=== PATIENT | male | born 1965 | race Caucasian/White ===

== ENCOUNTER 2017-03-04 15:15 | Emergency (ER) | payer MEDICAID ==
--- NOTE | 2017-03-04 15:31 | ED Physician Chart ---
ED Chief Complaint/HPI - Patient Information Date Seen:: 03/04/17 Time Seen:: 15:15 Chief Complaint:: Right Eye FB Sensation History of Present Illness:: onset x one day of right eye FB sensation after exposure to a metallic FB to Right eye; pt denies visual changes, decreased vision, ocular pain, eye pain or discharge; pt has mild right red eye; no H/As, head/neck trauma, neck pain, C/P , SOB, Abd. Pain, A/N/V/D/C, fever, chills, orc urinary s/s; no photophobia; pt' s last tetanus shot: > 5 years Allergies:: Allergies Allergy/AdvReac Type Severity Reaction Status Date / Time MDX No Known Allergies - Nka Allergy Verified 04/16/14 07:20 [No Known Allergies - Nka] Historian:: Patient, Family Member Review:: Nurse's Note Reviewed ED Review of Systems - Review of Systems General/Constitutional: No fever, No chills, No weight loss, No weakness, No diaphoresis, No edema, No loss of appetite Skin: No skin lesions, No rash, No bruising Head: No headache, No light-headedness Eyes: No loss of vision, No pain, No diplopia, Other (Right Red Eye; FB sensation) ENT: No earache, No nasal drainage, No sore throat, No tinnitus Neck: No neck pain, No swelling, No thyromegaly, No stiffness, No mass noted Cardio Vascular: No chest pain, No palpitations, No PND, No orthopnea, No edema Pulmonary: No SOB, No cough, No sputum, No wheezing GI: No nausea, No vomiting, No diarrhea, No pain, No melena, No hematochezia, No constipation, No hematemesis G/U: No dysuria, No frequency, No hematuria Musculoskeletal: No bone or joint pain, No back pain, No muscle pain Endocrine: Polyuria, Polydipsia Psychiatric: No prior psych history, No depression, No anxiety, No suicidal ideation Hematopoietic: No bruising, No lymphadenopathy Allergic/Immuno: No urticaria, No angioedema Neurological: No syncope, No focal symptoms, No weakness, No paresthesia, No headache, No seizure, No dizziness, No confusion, No vertigo ED Past Medical History - Past Medical History Obtainable: Yes Past Medical History: DM Family History: Diabetes Melitus, HTN Social History: Smoker, No Alcohol, No Drug Use, Surgical History: None Psychiatricy History: None Medication: Reviewed Family Medical History - Family Member Father Ethnicity: Living Status: Still Living Hx Family Diabetes: Yes ED Physical Exam - Physical Examination General/Constitutional: Awake, Well-developed, well-nourished, Alert, No distress, GCS 15, Non-toxic appearing, Ambulatory Head: Atraumatic Eyes: Lids, conjuctiva normal, PERRL, EOMI Other Eyes comments:: Va: 20/20 OU; + Right Corneal Abrasion; no FBs; + right Conjunctival Injection; no FBs; PERRLA; Fundi: benign; EOMs: WNL; Left Eye: WNL Skin: Nl inspection, No rash, No skin lesions, No ecchymosis, Well hydrated, No lymphadenopathy ENMT: External ears, nose nl, Nasal exam nl, Lips, teeth, gums nl Neck: Nontender, Full ROM w/o pain, No JVD, No nuchal rigidity, No bruit, No mass, No stridor Respiratory: Nl effort/Exclusion, Clear to Auscultation, No Wheeze/Rhonchi/Rales Cardio Vascular: RRR, No murmur, gallop, rubs, NL S1 S2 GI: No tenderness/rebounding/guarding, No organomegaly, No hernia, Normal BS's, Nondistended, No mass/bruits, No McBurney tenderness : No CVA tenderness Extremities: No tenderness or effusion, Full ROM, normal strength in all extremities, No edema, Normal digits & nails Neuro/Psych: Alert/oriented, DTR's symmetric, Normal sensory exam, Normal motor strength, Judgement/insight normal, Mood normal, Normal gait, No focal deficits Misc: Normal back, No paraspinal tenderness ED Assessment - Procedures Procedures:: Irrigation of Right Eye with normal saline; Double Eye Patch applied Informed Consent: Procedure/risk/benefits explained by MD: Yes ED Septic Shock - . Is Septic Shock (SBP<90, OR Lactate>4 mmol\L) present?: No ED Reassessment (Disposition) - Reassessment Reassessment:: pt is asymptomatic upon discharge Reassessment Condition:: Improved - Diagnosis Diagnosis:: Right Red Eye; Right Corneal Abrasion; Right Conjunctivitis; Right Eye FB Exposure - Aftercare/Follow up Instructions Aftercare/Follow-Up Instructions:: Counseled pt regarding lab results/diagnosis & need follow up, Refer to Discharge Instructions, Counseled pt & family regarding lab results/diagnosis & need follow up Medication Prescribed:: Rx: Tobramycin Ophthalmic Eye Drops: one drop to Right eye qid x 7 days; wear Right eye Patch x 24 hours - Patient Disposition Discharge/Transfer:: Home Condition at Disposition:: Stable, Improved (RTER prn if existing s/s reoccur and/or get worse and/or any other new s/s occur; ACIs given for all above Dx; Refer to [employer] JIM; F/U with PMD in one day or prn; RTER prn if concerned)
== END 2017-03-04 16:30 | disposition home or self-care (01) ==
LOC: ER 15:15
DX: H10.31 Unspecified acute conjunctivitis, right eye (principal); E11.9 Type 2 diabetes mellitus without complications; T15.01XA Foreign body in cornea, right eye, initial encounter; X58.XXXA Exposure to other specified factors, initial encounter; Y93.89 Activity, other specified; Y92.89 Other specified places as the place of occurrence of the external cause; Y99.8 Other external cause status
CPT/HCPCS: 82948-90; Z7502

== ENCOUNTER 2017-07-27 21:37 | Emergency (ER) | payer SELFPAY ==
--- NOTE | 2017-07-28 00:51 | ER Physician Documentation ---
DATE OF SERVICE: 07/27/2017 Full code, 52-year-old male patient. The patient came to the Emergency Room. The patient is a full code. The patient does not speak any K[place], hence history was taken from the patient's . 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 The triage time was not written, but the patient was seen by me around 11:00. The states that he is having lot of pain and it is little better right now, it was 6/10 pain. The patient never had any injury. They applied ice and then warm compressions over there. The patient is aware of Tylenol and Motrin and we are going to give that. The patient was examined. REVIEW OF SYSTEMS: All within normal limits. Eyes, ears, nose, throat, pulmonary, cardiac: No history of any angina pectoris, myocardial infarction, or rheumatic fever. No history of any GI tract problems. The patient occasionally drinks alcohol. There is no cirrhotic liver. There is no ascites. There is no genitourinary problem. There is no seizure disorder. There is no bones and joints trouble. There is no definite history of finding of fracture seen on the patient. ALLERGIES: No known allergies. Pain level is 6/10. Code status is full. PHYSICAL EXAMINATION: NEUROLOGIC: The patient is awake, alert, oriented x 4. He is ambulatory. VITAL SIGNS: Temperature is 97.3, pulse is 72, respirations 18, blood pressure 140/83, oxygen saturation 98%. Height is 5 feet 7 inches, weight 165 pounds. ABDOMEN: Soft, benign, negative. CENTRAL NERVOUS SYSTEMS: Within normal limits. HOSPITAL COURSE: The patient is comfortably lying in bed. I examined the right elbow. The right elbow shows essentially, just above the right ulnar nerve bone there is a little swelling of about 1 cm is rare and surrounding area there is minimal tenderness and pain noted. Otherwise, no significant evidence of fracture. The patient can move the arm in various directions without any problems. Hence there is no evidence of any fracture. There seems to be some and injury over that could be controlled with the use of Motrin and warm compressions and 2 days of rest to the patient and then return back to work. The patient's chest is clear without any rales, rhonchi, or bronchial breathing. CLINICAL IMPRESSION: The patient has had an injury to the right elbow secondary to removing of blisters in his working place giving rise to pain near the right elbow. There is no need of any x-rays to be done because there is no clinical evidence of any fracture. The patient can move all his extremities without any problems. OTHER DIAGNOSIS: The patient is not on any other home medications. The patient has previous history of diabetes mellitus. The patient had a cyst removed on the neck. The nurse will give the patient some instructions also. I have given the patient instructions, too. JOB# [id number]
== END 2017-07-27 23:35 | disposition home or self-care (01) ==
LOC: ER 21:37
DX: S59.901A Unspecified injury of right elbow, initial encounter (principal); X58.XXXA Exposure to other specified factors, initial encounter; Y93.89 Activity, other specified; Y92.89 Other specified places as the place of occurrence of the external cause; Y99.8 Other external cause status
CPT/HCPCS: Z7502